=== PATIENT | female | born 1980 | race Two or more races ===

== ENCOUNTER 2016-10-18 21:40 | Observation (INO) | payer MEDICAID, OTHER ==
[~2016-10-18] VITALS: Ht 149.9 cm; Wt 60.8 kg
[2016-10-18] MEDS ORDERED: ZIPRASIDONE 20 MG INJ IM ONE (23:35)
[2016-10-18 23:52] LABS: DAU SCREEN DISCLAIMER
[2016-10-19] MEDS ORDERED: ZIPRASIDONE 20 MG INJ IM ONE
[2016-10-19 00:03] LABS: ASPARTATE AMINO TRANSFERASE 21 U/L (15-37); BLOOD UREA NITROGEN 19 mg/dL (7-18)
[2016-10-19 00:11] LABS: ACETAMINOPHEN < 2 mcg/mL (10-30)
[2016-10-19] MEDS ORDERED: CEFTRIAXONE 1,000 MG IM ONE (03:00)
[2016-10-19] MEDS ORDERED: CEFTRIAXONE 1,000 MG ONE (03:01)
[2016-10-19] MEDS ORDERED: ENOXAPARIN 40 MG/0.4 ML SQ SCH (06:00)
[2016-10-19] MEDS ORDERED: ACETAMINOPHEN 325 MG TABLET PO PRN (06:00)
[2016-10-19] MEDS ORDERED: ONDANSETRON ODT 4 MG PO PRN (06:00)
[2016-10-19 06:41] VITALS: BP 125/84
[2016-10-19] MEDS ORDERED: CEFDINIR 300 MG CAPSULE PO SCH (09:00)
[2016-10-19] MEDS ORDERED: CEFD300C37 PO (11:11)
[2016-10-19] MEDS ORDERED: TEMAZEPAM 15 MG CAPSULE PO PRN (14:00)
[2016-10-19] MEDS ORDERED: DOCUSATE 100 MG CAPSULE PO PRN (17:30)
[2016-10-19] MEDS ORDERED: LORazepam 2 MG/ML, 1ML IM ONE (20:30)
[2016-10-19] MEDS ORDERED: RISPERIDONE 0.5 MG TABLET PO SCH (21:00)
== END 2016-10-19 20:17 ==
LOC: ED 23:59 → INTOOBSV 10-19 02:52 → EDIP 10-19 02:52 → 3E 10-19 06:35
PROVIDERS: ADMIT Internal Medicine; ATTEND Internal Medicine
DX: R44.1 Visual hallucinations (principal); G47.00 Insomnia, unspecified; N39.0 Urinary tract infection, site not specified; F32.9 Major depressive disorder, single episode, unspecified; R17 Unspecified jaundice
CPT/HCPCS: 36415; 74000; 80053; 80307; 80329; 81001; 84703; 85025; 87086; 93005; 96372; 99285; G0378; J0696; J3486; G0480

== ENCOUNTER 2016-10-24 19:03 | Observation (INO) | payer OTHER ==
[~2016-10-24] VITALS: Ht 162.6 cm; Wt 70.0 kg
[~2016-10-24 19:03] MED LIST: CEFD300C37 PO
[2016-10-24] MEDS ORDERED: HYDR50CA2 PO (19:25)
[2016-10-24] MEDS ORDERED: RISP3TAB3 PO (19:25)
[2016-10-24] MEDS ORDERED: LAMO25TB PO (19:25)
[2016-10-24 19:58] LABS: ASPARTATE AMINO TRANSFERASE 28 U/L (15-37); BLOOD UREA NITROGEN 8 mg/dL (7-18)
[2016-10-24 20:01] LABS: ACETAMINOPHEN < 2 mcg/mL (10-30)
[2016-10-24] MEDS ORDERED: LORazepam 2 MG/ML, 1ML ONE (21:37)
[2016-10-24] MEDS ORDERED: ZIPRASIDONE 20 MG INJ IM ONE ×2 (22:12→22:30)
[2016-10-24] MEDS ORDERED: LORazepam 2 MG/ML, 1ML IVPush ONE (22:30)
[2016-10-25 00:20] LABS: DAU SCREEN DISCLAIMER
[2016-10-25] MEDS ORDERED: DOCUSATE 100 MG CAPSULE PO PRN (01:30)
[2016-10-25] MEDS ORDERED: POTASSIUM CHLORIDE 20 MEQ TAB.ER.PRT PO ONE (01:30)
[2016-10-25] MEDS ORDERED: BISACODYL 10 MG SUPP PR PRN (01:30)
[2016-10-25] MEDS ORDERED: POLYETHYLENE GLYCOL 17 GM PACKET PO PRN (01:30)
[2016-10-25] MEDS ORDERED: ONDANSETRON ODT 4 MG PO PRN (01:30)
[2016-10-25] MEDS ORDERED: ACETAMINOPHEN 325 MG TABLET PO PRN (01:30)
[2016-10-25 04:05] VITALS: BP 123/83
[2016-10-25] MEDS: OLANZAPINE 5 MG TABLET PO PRN (04:40)
[2016-10-25] MEDS: OLANZAPINE 10 MG INJ IM PRN ×2 (05:19→17:50)
[2016-10-25 12:30] VITALS: BP 100/64
[2016-10-25] MEDS: LORazepam 2 MG/ML, 1ML IM PRN (17:49)
[2016-10-25 19:55] VITALS: BP 113/80
[2016-10-26] MEDS: OLANZAPINE 10 MG INJ IM PRN (03:15)
[2016-10-26] MEDS: LORazepam 2 MG/ML, 1ML IM PRN (03:22)
[2016-10-26 03:30] VITALS: BP 102/78
[2016-10-26] MEDS: OLANZAPINE 5 MG TABLET PO PRN ×2 (05:25→13:51)
[2016-10-26 10:23] VITALS: BP 103/70
[2016-10-26 19:56] VITALS: BP 101/65
[2016-10-27] MEDS: OLANZAPINE 10 MG INJ IM PRN (01:38)
[2016-10-27 09:14] VITALS: BP 95/60
[2016-10-27] MEDS: LORazepam 2 MG/ML, 1ML IM PRN (09:28)
[2016-10-27] MEDS ORDERED: LORazepam 2 MG/ML, 1ML IM ONE (10:00)
[2016-10-27] MEDS ORDERED: LORazepam 2 MG/ML, 1ML IM PRN ×2 (10:00→16:00)
[2016-10-27 12:13] VITALS: BP 101/67
[2016-10-27] MEDS: ARIPIPRAZOLE 10 MG TABLET PO SCH (12:46)
[2016-10-27] MEDS ORDERED: OLANZAPINE 10 MG INJ IM PRN (17:30)
[2016-10-27 17:44] LABS: BLOOD UREA NITROGEN 11 mg/dL (7-18)
[2016-10-28 01:27] VITALS: BP 116/86
[2016-10-28 08:00] VITALS: BP 115/76
[2016-10-28] MEDS: ARIPIPRAZOLE 10 MG TABLET PO SCH (08:36)
[2016-10-28] MEDS: CEFDINIR 300 MG CAPSULE PO SCH ×2 (12:30→20:01)
[2016-10-28 17:56] VITALS: BP 89/66
[2016-10-28 19:03] VITALS: BP 109/75
[2016-10-29] MEDS: OLANZAPINE 5 MG TABLET PO PRN (02:42)
[2016-10-29 07:19] VITALS: BP 111/76
[2016-10-29] MEDS ORDERED: ARIPIPRAZOLE 10 MG TABLET PO ONE (09:00)
[2016-10-29] MEDS: ARIPIPRAZOLE 10 MG TABLET PO SCH (09:07)
[2016-10-29] MEDS: CEFDINIR 300 MG CAPSULE PO SCH ×2 (09:07→20:53)
[2016-10-29 20:50] VITALS: BP 103/70
[2016-10-30 07:30] VITALS: BP 112/77
[2016-10-30] MEDS: CEFDINIR 300 MG CAPSULE PO SCH ×2 (08:08→20:46)
[2016-10-30] MEDS: ARIPIPRAZOLE 10 MG TABLET PO SCH (08:09)
[2016-10-30] MEDS ORDERED: ABILIFY MAINTENA 400 MG IM ONE (11:30)
[2016-10-30 19:26] VITALS: BP 113/64
[2016-10-31 07:20] VITALS: BP 108/50
[2016-10-31] MEDS: CEFDINIR 300 MG CAPSULE PO SCH (08:17)
[2016-10-31] MEDS: ARIPIPRAZOLE 10 MG TABLET PO SCH (08:19)
[2016-10-31] MEDS ORDERED: ARIP400S3 IJ (15:52)
[2016-10-31] MEDS ORDERED: ARIP15TA2 PO (15:56)
[2016-10-31] MEDS ORDERED: CEFD300C37 PO ×2 (16:19→16:32)
== END 2016-10-31 17:58 | disposition home or self-care (01) ==
LOC: ED 20:14 → EDIP 10-25 01:18 → 3E 10-25 04:04
PROVIDERS: ADMIT Internal Medicine; ATTEND Internal Medicine
DX: R45.851 Suicidal ideations (principal); F20.9 Schizophrenia, unspecified; F31.9 Bipolar disorder, unspecified; R00.0 Tachycardia, unspecified; F23 Brief psychotic disorder; F29 Unspecified psychosis not due to a substance or known physiological condition
CPT/HCPCS: 36415; 80048; 80053; 80307; 80329; 81001; 83735; 84439; 84443; 84481; 84703; 85025; 87086; 93005; 96372; 96374; 99285; G0378; J2060; J3486; G0480

== ENCOUNTER 2016-11-06 15:22 | Emergency (ER) | payer OTHER ==
[~2016-11-06] VITALS: Ht 149.9 cm; Wt 61.4 kg
[~2016-11-06 15:22] MED LIST changes: +ARIP15TA2 PO; +ARIP400S3 IJ; +HYDR50CA2 PO; +LAMO25TB PO; +RISP3TAB3 PO
[2016-11-06] MEDS ORDERED: DIPHENHYDRAMINE 25 MG CAPSULE ONE (16:40)
[2016-11-06] MEDS ORDERED: DIPHENHYDRAMINE 25 MG CAPSULE PO ONE (17:00)
[2016-11-06 20:11] VITALS: BP 110/71
== END 2016-11-06 20:13 | disposition home or self-care (01) ==
LOC: ED 17:59
DX: F51.04 Psychophysiologic insomnia (principal); F32.9 Major depressive disorder, single episode, unspecified
CPT/HCPCS: 99283; Q0163

== ENCOUNTER 2017-07-15 01:27 | Emergency (ER) | payer OTHER ==
[~2017-07-15] VITALS: Ht 149.9 cm; Wt 62.0 kg
[~2017-07-15 01:27] MED LIST changes: -ARIP15TA2 PO; +ARIP15TA3 PO
[2017-07-15] MEDS ORDERED: KETOROLAC 30 MG/1 ML IM ONE (02:00)
[2017-07-15] MEDS ORDERED: LORazepam 0.5MG TABLET PO ONE (02:00)
[2017-07-15] MEDS ORDERED: LORazepam 0.5MG TABLET ONE (02:10)
[2017-07-15] MEDS ORDERED: KETOROLAC 30 MG/1 ML ONE (02:11)
[2017-07-15 02:13] LABS: BASOPHILS # (AUTO) 0.13 x10^3/uL (0-0.1); BASOPHILS % (AUTO) 1 % (0-1); EOSINOPHILS # (AUTO) 0.03 x10^3/uL (0-0.4); EOSINOPHILS % (AUTO) 0 % (1-7); LYMPHOCYTES # (AUTO) 2.27 x10^3/uL (1-3.4); LYMPHOCYTES % (AUTO) 25 % (22-44); MD NO; MEAN CORPUSCULAR HEMOGLOBIN 30.5 pg (27.0-34.8); MEAN CORPUSCULAR HGB CONC 33.7 g/dL (32.4-35.8); MEAN CORPUSCULAR VOLUME 90.5 fL (80-100); MEAN PLATELET VOLUME 9.1 fL (7.4-10.4); MONOCYTES # (AUTO) 0.75 x10^3/uL (0.2-0.8); MONOCYTES % (AUTO) 8 % (2-9); NEUTROPHILS % (AUTO) 65 % (42-75); PLATELET COUNT 278 x10^3/uL (130-400); RED BLOOD COUNT 4.25 x10^6/uL (3.82-5.3); RED CELL DISTRIBUTION WIDTH 12.3 % (9.6-15.2)
[2017-07-15 02:22] LABS: ALANINE AMINOTRANSFERASE 17 U/L (12-78); ALBUMIN 3.6 g/dL (3.4-5.0); ANION GAP 7 mmol/L (5-15); CALCIUM 8.5 mg/dL (8.5-10.1); CHLORIDE 111 mmol/L (98-107); CREATININE 0.76 mg/dL (0.55-1.02)
[2017-07-15 02:26] LABS: ALKALINE PHOSPHATASE 79 U/L (45-117); BILIRUBIN,TOTAL 0.6 mg/dL (0.2-1.0); TOTAL PROTEIN 7.7 g/dL (6.4-8.2); TROPONIN I < 0.015 ng/mL (0.000-0.045)
[2017-07-15 02:56] VITALS: BP 111/74
== END 2017-07-15 03:18 | disposition home or self-care (01) ==
LOC: ED 03:05
DX: R06.00 Dyspnea, unspecified (principal); R07.89 Other chest pain
CPT/HCPCS: 36415; 71046; 80053; 84484; 85025; 93005; 96372; 99285; J1885

== ENCOUNTER 2017-09-02 23:49 | Emergency (ER) | payer OTHER ==
[~2017-09-02] VITALS: Ht 149.9 cm; Wt 58.6 kg
[2017-09-03 01:20] VITALS: BP 130/76
== END 2017-09-03 01:41 | disposition home or self-care (01) ==
LOC: ED 09-03 01:27
DX: F51.04 Psychophysiologic insomnia (principal); Z88.0 Allergy status to penicillin
CPT/HCPCS: 99281